=== PATIENT | female | born 1955 | race Caucasian/White ===

== ENCOUNTER → 2024-01-17 09:59 | Outpatient (REF) | payer MEDICARE, BC, SELFPAY | LOC: HWWDC 09:59 | PROVIDERS: ATTENDING PHYSICIAN Nurse Practitioner Family | DX: Z12.31 Encounter for screening mammogram for malignant neoplasm of breast (principal) | CPT/HCPCS: 77063; 77067 ==

== ENCOUNTER → 2025-02-08 09:49 | Outpatient (REF) | payer MEDICARE, BC, SELFPAY | LOC: HWRAD 09:49 | PROVIDERS: ATTENDING PHYSICIAN Nurse Practitioner Adult Health; FAMILY PHYSICIAN Nurse Practitioner Adult Health | DX: M85.89 Other specified disorders of bone density and structure, multiple sites (principal); Z12.31 Encounter for screening mammogram for malignant neoplasm of breast | CPT/HCPCS: 77063; 77067; 77080 ==

== ENCOUNTER 2025-05-02 01:24 | Emergency (ER) | payer MEDICARE, BC, SELFPAY ==
[2025-05-02] VITALS (12 sets, daily range): BP systolic 99–121; BP diastolic 49–92; PULSE 48–64; BMI 34.1
[2025-05-02 01:47] LABS: Hematocrit 35.1 % (37.0-47.0); Hemoglobin 12.1 g/dL (12.0-16.0); Mean Corp Hgb Conc. 34.5 g/dL (33.0-37.0); Mean Corpuscular Volume 93.4 fL (81.0-99.0); Nucleated Red Blood Cells % 0 %; Platelet Count 190 10^3/uL (130-400); Red Cell Dist. Width 12.8 % (11.5-14.5)
[2025-05-02 02:01] LABS: ALT (SGPT) 16 U/L (0-35); AST (SGOT) 24 U/L (14-36); Albumin 4.1 g/dl (3.5-5.0); Alkaline Phosphatase 44 U/L (38-126); Blood Urea Nitrogen 16 mg/dl (7-17); Calcium 9.0 mg/dl (8.4-10.2); Carbon Dioxide 29 mmol/L (22-30); Chloride 98 mmol/L (98-107); Estimated Creatinine Clearance 59 ml/min; Glucose 109 mg/dl (70-99); Magnesium 1.9 mg/dl (1.6-2.3); Potassium 3.9 mmol/L (3.5-5.1); Sodium 132 mmol/L (135-145); Total Protein 6.7 g/dl (6.3-8.2); eGFR > 60.00
[2025-05-02] MEDS: ZOFRAN 4 MG IV (03:51)
[2025-05-02] MEDS: MORPHINE SULFATE 4 MG IV (03:51)
[2025-05-02] MEDS: NSS 1000 IV (03:52)
--- NOTE | 2025-05-02 04:28 | ED.GENMED ---
History of Present Illness
General
Chief Complaint: Heart Rate Problem
Source: patient, spouse and ambulance crew
Exam Limitations: none
Time Seen by Provider: 05/02/25 02:16
Nursing documentation reviewed up to this point in time: agreed with
History of Present Illness
History of Present Illness:
The patient is a 69-year-old female who presented with a sudden onset of crampy and gassy abdominal pain. The pain began postprandially, around 6:30 to 7:00 PM, after dinner. The patient reports accompanying nausea and a sensation of
lightheadedness, stating that she felt as though she might pass out, particularly when attempting to go to the bathroom. The patient has made efforts to have a bowel movement without success, and she denies vomiting. She reports feeling as though
she is straining but without the ability to pass stool.
The patient has a pattern of daily bowel movements which are usually regular; however, after dinner, she experienced an uncharacteristic need to have another, which was normal. There is a history of constipation but no previous episodes like the
current one. Surgeries are 2 C-sections. She has experienced constipation in the past. No urinary symptoms such as burning or pain while urinating were reported.
The abdominal discomfort is generalized but more prominent in the lower abdomen. She notes feeling some relief from nausea when attempting to have a bowel movement, though no subsequent bowel movements have occurred after the initial post-dinner
episode. Her heart rate appears to decrease during these symptoms.
She arrives via EMS, prehospital heart rate reportedly in the 40s with few brief dropped in the 20s and 30s. She was given IV fluid bolus of 100 cc prehospital.
Past History
Past History
ED Past Medical History: Hypercholesterolemia and Other (Constipation)
ED Past Surgical History: (X 2)
Social History
Tobacco: Non-smoker
Alcohol: None
Personal:
Living: with family
Employment: Retired
Family History
Family History: Other (Noncontributory)
Phy Exam
Physical Exam
Physical Exam:
GENERAL: 69-year-old woman appears her stated age, awake and alert, pleasant, appears mildly uncomfortable but easily communicative. is accompanying.
EYE: anicteric
NECK: Supple, nontender, no meningismus, no significant adenopathy.
ENT: posterior pharynx is clear, oral mucosa is moist. No rhinorrhea.
CARDIAC: Regular rhythm at 50. no murmur.
LUNGS: Clear breath sounds bilaterally, no acute respiratory distress, no wheezes/rales/rhonchi
ABDOMEN: Soft, nondistended, mild generalized tenderness to the lower abdomen, suprapubic and right lower quadrant more so than left lower quadrant, no r/g, no cvat. normoactive BS.
NEUROLOGICAL: Alert and oriented x3, no focal neuro deficits.
SKIN: Warm and dry, normal color, skin intact. No rash.
MUSCULOSKELETAL: No C/C/E. peripheral pulses are full and equal b/l. No palpable tenderness.
PSYCH: Normal and appropriate interaction.
Course
Orders/Labs/Results
Orders:
Orders
05/02/25 01:26
Electrocardiogram (*1) Urgent
Reason for Study: Bradycardia / Tachycardia
EKG- Treatment ONCE
05/02/25 01:33
Complete Blood Count/With Diff Urgent
Comprehensive Metabolic Panel Urgent
Magnesium Urgent
05/02/25 03:13
CT Abd/pelvis W Iv Cont Urgent
Comment:
Reason For Exam: gen lower abd pain, nausea
0.9% Sodium Chloride 1000 ml [Nss] 1,000 ml IV BOLUS
Morphine Sulfate 4 mg IV NOW STA
Ondansetron Injectable [Zofran] 4 mg IV NOW STA
05/02/25 03:21
Lactic Acid Urgent
05/02/25 04:48
Orthostatic VS- Treatment ONCE
Abnormal Lab Results
05/02/25
01:33
RBC 3.76 L 10^6/uL
(4.20-5.40)
Hct 35.1 L %
(37.0-47.0)
MCH 32.2 H pg
(27.0-31.0)
MPV 10.6 H fL
(7.4-10.4)
Sodium 132 L mmol/L
(135-145)
Glucose 109 H mg/dl
(70-99)
05/02/25 01:33
05/02/25 01:33
Vital Signs
Initial and Last Documented VS:
Initial Vital Signs
Temp Pulse Resp BP Pulse Ox
97.6 F 52 20 121/77 98
05/02/25 01:27 05/02/25 01:27 05/02/25 01:27 05/02/25 01:27 05/02/25 01:27
Last Documented Vital Signs
Temp Pulse Resp BP Pulse Ox
97.6 F 57 20 99/87 100
05/02/25 01:27 05/02/25 02:30 05/02/25 02:30 05/02/25 02:30 05/02/25 04:37
MDM/Problems Addressed
Differential Diagnosis Includes:
The Differential Diagnosis includes, in no particular order and is not limited to:
1. Small bowel obstruction
2. Constipation
3. Gastroenteritis
4. Peptic ulcer disease
5. Inflammatory bowel disease
6. Irritable bowel syndrome
7. Ischemic colitis
8. Diverticulitis
9. Urinary tract infection
10. Food poisoning
MDM/Problems Addressed:
Acute crampy lower abdominal pain associated with nausea and lightheadedness.
Noted to be mildly bradycardic but otherwise hemodynamically stable without hypotension.
Labs thus far unremarkable.
EKG shows sinus bradycardia otherwise unremarkable.
Will check lactic acid as well as CT abdomen pelvis.
Will initiate IV fluids, give Zofran for nausea and a dose of morphine for pain.
Chronic conditions affecting care:
History of constipation
Prior abdominal surgeries/C-sections x 2.
*Radiology
Radiology exam reviewed: radiology read reviewed (CT abdomen pelvis is unremarkable save for constipation)
*Pulse Oximetry
SaO2: 100
Oxygen Mode of Delivery: Room air
Patient hypoxic: no
*EKG
Interpreted by ED Provider?: Yes
Comparison EKG: no comparison EKG present
Rate: bradycardiac
Rhythm: sinus
[place]: normal axis
Interval: normal interval
QRS Pattern: normal QRS
Ischemia: no ischemia
*[employer] Vice President Interpretation
Rate: bradycardiac
Interpretation: normal
Heart Rate: 55
Rhythm: sinus
*Critical Care Note
Total Time (30-74mins, 75-104mins- exclusive of procedures): Not Applicable
Update Note
Update Note:
04:50
Patient feeling improved.
CT shows constipation otherwise unremarkable.
Lactic acid is normal.
Patient admits to neglecting her MiraLAX and will plan to resume MiraLAX on a daily basis.
Monitor shows sinus bradycardia at 58-60. Patient states this is her baseline heart rate in the 50s to 60s.
Will check orthostatic vital signs and if unremarkable will plan for discharge to home with recommendation she resume MiraLAX and continue on a daily basis.
Prompt follow-up with PCP for recheck.
ED Attending Note
-
Portions of this chart may have been created with voice recognition software.� Occasional wrong word or��sound alike� substitutions may have occurred due to the inherent limitations of voice recognition software.
Discharge Plan
Departure
Patient Disposition: Home (Routine Discharge)
Date of Disposition: 05/02/25
Time of Disposition: 04:51
Patient with high blood pressure during this ER visit?: No
Condition: Good
Discharge Problem:
Constipation, Abdominal pain, acute, Vasovagal episode
Instructions: Near Fainting (DC), Constipation in adults - ED (DC)
Prescriptions:
No Action
atorvastatin 10 mg Tablet
10 mg PO DAILY
fluoxetine 10 mg Capsule
10 mg PO DAILY
[place] 50 mg Capsule
50 mg PO DAILY
Referrals:
Hernan Duarte CRNP [Family Provider, Internal Medicine] - Call in 1-3 days for appt
Interventions
Interventions:
*Risk Screen - Suicide Last Done: 05/02/25 01:27
*General Assessment Last Done: 05/02/25 01:27
*Neglect/Abuse Screening Last Done: 05/02/25 01:27
*ED- Fall Risk Assessment Last Done: 05/02/25 01:27
*ED COVID-19 Vaccine History Last Done: 05/02/25 01:27
*ED Influenza Vaccine History Last Done: 05/02/25 01:27
ED- Cardiac Assessment Last Done: 05/02/25 01:27
ED- Pulmonary Assessment Last Done: 05/02/25 01:27
Discharge Date and Time
Print Language: MEXICAN
== END 2025-05-02 06:15 | disposition home or self-care (01) ==
LOC: EMR 01:24
PROVIDERS: EMERGENCY PHYSICIAN Emergency Medicine; FAMILY PHYSICIAN Nurse Practitioner Adult Health
DX: K59.00 Constipation, unspecified (principal); R10.84 Generalized abdominal pain; R55 Syncope and collapse; E78.00 Pure hypercholesterolemia, unspecified
CPT/HCPCS: 96374; 96375; 96361; 99284; 74177; 80053; 83605; 83735; 85025; 93005; Q9967